=== PATIENT | female | born 2000 | race Caucasian/White ===

== ENCOUNTER 2018-10-13 22:08 | Emergency (ER) | payer BC ==
[2018-10-13] MEDS ORDERED: DEXAMETHASONE 10 MG/ML VIAL IVP ONE (22:38)
[2018-10-13] MEDS ORDERED: NS 1,000 ML IV ONE (22:38)
--- NOTE | 2018-10-13 22:40 | EDPHY ---
H & P Stated Complaint: fever, sore throat x 3-4 days, on po antibiotics - Personal History LMP (Females 10-55): 1-7 Days Ago Current Tetanus Diphtheria and Acellular Pertussis (TDAP): Yes - Medical/Surgical History Hx Asthma: No Hx Chronic Respiratory Disease: No Hx Diabetes: No Hx Cardiac Disease: No Hx Renal Disease: No Hx Alcoholism: No Hx HIV/AIDS: No Hx Splenectomy or Spleen Trauma: No Other PMH: denies - Social History Smoking Status: Never smoked Time Seen by Provider: 10/13/18 22:23 HPI/ROS: CHIEF COMPLAINT: Sore throat, flu symptoms x4 days HISTORY OF PRESENT ILLNESS: 17-year-old immunocompetent female returned from a trip to [facility] his foot 3 days ago. 4 days ago while in [facility] she started to develop sore throat, myalgias. She was seen at [facility] yesterday and prescribed Keflex which she has been on for 24 hr. Had negative strep and flu testing at [facility]. In the ER because she developed nausea this evening with no vomiting as well as epigastric discomfort. No diarrhea. No urinary abnormality. No fever or chills. No rash. No back or flank pain. No chest pain. No dyspnea. No cough. No nuchal rigidity. No headache. No photophobia. REVIEW OF SYSTEMS: 10 systems reviewed and negative with the exception of the elements mentioned in the history of present illness PAST MEDICAL & SURGICAL HISTORY: Up-to-date with influenza and typhoid vaccine.] SOCIAL HISTORY:Student PHYSICAL EXAM (Prior to examination, patient consented to physical exam, hands were washed and my usual and customary physical exam procedures followed) 1) GENERAL: Well-developed, well-nourished, alert and oriented. Appears to be in no acute distress. 2) HEAD: Normocephalic, atraumatic 3) HEENT: Pupils equal, round, reactive to light bilaterally. Sclera anicteric. Oropharynx:bilaterally enlarged, exudative tonsils. Uvula midline. No pointing. No hot potato voice. Ears bilaterally with normal tympanic membranes. Evidence of otitis media otitis externa. 4) NECK: Full range of motion, no meningeal signs. 5) LUNGS: Clear auscultation bilaterally, no wheezes, no rhonchi, no retractions. 6) HEART: Regular rate and rhythm, no murmur, no heave, no gallop. 7) ABDOMEN: No guarding, no rebound, no focal tenderness, negative McBurney's, negative Laurent's, negative Rovsing's, negative peritoneal sign, no splenomegaly. No hepatomegaly. Unable to elicit any abdominal pain on exam. 8) MUSCULOSKELETAL: Moving all extremities, no focal areas of tenderness, no obvious trauma. No peripheral edema or discoloration. 9) BACK: No CVA tenderness, no midline vertebral tenderness, no fluctuance, no step-off, no obvious trauma, no visual or palpable abnormality. 10) SKIN: No rash, no petechiae. 11) Psychiatric: Patient is oriented X 3, there is no agitation. DIFFERENTIAL DIAGNOSIS: In no particular order including but not limited to strep pharyngitis, mononucleosis, dengue fever (Jessi,Arnold Lizzy) Constitutional: Initial Vital Signs Temperature (C) 36.6 C 10/13/18 22:17 Heart Rate 92 10/13/18 22:17 Respiratory Rate 20 10/13/18 22:17 Blood Pressure 120/83 H 10/13/18 22:17 O2 Sat (%) 99 10/13/18 22:17 O2 Delivery Mode Room Air Allergies/Adverse Reactions: No Known Allergies Allergy (Unverified 10/13/18 22:16) Home Medications: Medication Instructions Recorded [place] Fe 1.5-30 Tablet 10/13/18 Medical Decision Making ED Course/Re-evaluation: 1235: Patient re-evaluated this time is eager for discharge requesting discharge. I did go and see and meet her. She appears well nontoxic she does have exudate on 3+ symmetrical tonsils bilaterally. This most likely cause of her fever. She is afebrile here. She appears well nontoxic no acute distress able swallow appropriately. She is on Keflex at this time. She is receiving a 2nd L fluid to hydrate her. And will send her urinalysis for evaluation. ( Mukesh Victoria) - Data Points Laboratory Results: Laboratory Results 10/13/18 22:50 10/13/18 22:50 10/13/18 10/13/18 10/13/18 22:50 22:50 22:50 WBC 6.85 10^3/uL 10^3/uL (3.80-9.50) RBC 4.32 10^6/uL 10^6/uL (4.18-5.33) Hgb 13.3 g/dL g/dL (12.6-16.3) Hct 38.1 % % (38.0-47.0) MCV 88.2 fL fL (81.5-99.8) MCH 30.8 pg pg (27.9-34.1) MCHC 34.9 g/dL g/dL (32.4-36.7) RDW 12.4 % % (11.5-15.2) Plt Count 122 10^3/uL L 10^3/uL (150-400) MPV 9.9 fL fL (8.7-11.7) Neut % (Auto) Not Reported Lymph % (Auto) Not Reported [place] % (Auto) Not Reported Eos % (Auto) Not Reported Baso % (Auto) Not Reported Nucleat RBC Rel Count Not Reported Absolute Neuts (auto) Not Reported Absolute Lymphs (auto) Not Reported Absolute Monos (auto) Not Reported Absolute Eos (auto) Not Reported Absolute Basos (auto) Not Reported Absolute Nucleated RBC Not Reported Immature Gran % Not Reported Seg Neutrophils % 77.8 % % Band Neutrophils % 9.1 % % Lymphocytes % 5.0 % % Monocytes % 8.1 % % Eosinophils % 0.0 % % Basophils % 0.0 % % Metamyelocytes % 0.0 % % Myelocytes % 0.0 % % Promyelocytes % 0.0 % % Blast Cells % 0.0 % % Immature Gran # Not Reported Absolute Seg Neuts 5.33 10^3/uL 10^3/uL (1.70-6.50) Absolute Band Neuts 0.62 10^3/uL 10^3/uL (0.00-0.70) Absolute Lymphocytes 0.34 10^3/uL L 10^3/uL (1.00-3.00) Absolute Monocytes 0.55 10^3/uL 10^3/uL (0.30-0.80) Absolute Eosinophils 0.00 10^3/uL L 10^3/uL (0.03-0.40) Absolute Basophils 0.00 10^3/uL L 10^3/uL (0.02-0.10) Absolute Metamyelocyte 0.00 10^3/mL 10^3/mL (0.00-0.00) Absolute Myelocytes 0.00 10^3/mL 10^3/mL (0.00-0.00) Absolute Promyelocytes 0.00 10^3/uL 10^3/uL (0.00-0.00) Absolute Plasma Cells 0.00 10^3/uL 10^3/uL (0.00-0.00) Nucleated RBCs 0 /100 WBC /100 WBC (0-0) Absolute Blast Cells 0.00 10^3/uL 10^3/uL (0.00-0.00) Plasma Cells % 0.0 % % Toxic Granulation PRESENT H Toxic Vacuolation PRESENT H Dohle Bodies PRESENT H Platelet Estimate DECREASED L (ADEQ) Polychromasia 1+ H Acanthocytes (Spur) 1+ H Sodium 135 mEq/L mEq/L (135-145) Potassium 3.5 mEq/L mEq/L (3.5-5.2) Chloride 103 mEq/L mEq/L (97-110) Carbon Dioxide 21 mEq/l L mEq/l (22-31) Anion Gap 11 mEq/L mEq/L (6-14) BUN 8 mg/dL mg/dL (7-23) Creatinine 0.5 mg/dL L mg/dL (0.6-1.0) Estimated GFR > 60 Glucose 82 mg/dL mg/dL (70-100) Calcium 8.7 mg/dL mg/dL (8.5-10.4) Total Bilirubin 0.3 mg/dL mg/dL (0.1-1.4) Conjugated Bilirubin 0.2 mg/dL mg/dL (0.0-0.5) Unconjugated Bilirubin 0.1 mg/dL mg/dL (0.0-1.1) AST 24 IU/L IU/L (14-46) ALT 22 IU/L IU/L (9-52) Alkaline Phosphatase 56 IU/L IU/L (38-126) Total Protein 6.6 g/dL g/dL (6.3-8.2) Albumin 3.7 g/dL g/dL (3.5-5.0) Lipase 185 IU/L IU/L (23-300) Beta HCG, Qual NEGATIVE Monoscreen NEGATIVE (NEGATIVE) Medications Given: Discontinued Medications Dexamethasone (Decadron Injection) 10 mg IVP EDNOW ONE Stop: 10/13/18 22:39 Last Admin: 10/13/18 22:57 Dose: 10 mg Sodium Chloride (Ns) 1,000 mls @ 0 mls/hr IV ONCE ONE PRN Reason: Wide Open Stop: 10/13/18 22:39 Last Admin: 10/13/18 22:49 Dose: 1,000 mls Sodium Chloride (Ns) 1,000 mls @ 0 mls/hr IV ONCE ONE PRN Reason: Wide Open Stop: 10/14/18 00:26 Last Admin: 10/14/18 00:29 Dose: 1,000 mls Departure - Departure Disposition: Home, Routine, Self-Care Clinical Impression: Pharyngitis Condition: Good Instructions: Pharyngitis (ED) Additional Instructions: Return to the ER immediately if you cannot swallow, have drooling, fevers, neck stiffness, cannot open your jaw, or any other symptoms that concern you. Referrals: Ladi Phillips MD [Medical Doctor] - As per Instructions
[2018-10-13 23:07] LABS: PLATELET COUNT 122 10^3/uL (150-400)
[2018-10-14] MEDS ORDERED: NS 1,000 ML IV ONE (00:25)
[2018-10-14 02:35] VITALS: BP 117/71
== END 2018-10-14 02:34 | disposition home or self-care (01) ==
DX: J02.9 Acute pharyngitis, unspecified (principal); E86.9 Volume depletion, unspecified
CPT/HCPCS: 96374; J1100